=== PATIENT | female | born 1970 | race African-American/Black ===

== ENCOUNTER → 2021-07-22 | Emergency (ER) | payer MEDICAID ==
[~2021-07-22] VITALS: Ht 160 cm; Wt 72.9 kg
[~2021-07-22] MED LIST: ACET-2708 MT; ACETAMINOPHEN 325MG TABLET PO ONE; KETOROLAC 60MG/2ML VIAL IM ONE
[2021-07-22 20:15] VITALS: BP 130/84
== END ==
LOC: ER 19:40
DX: M79.18 Myalgia, other site (principal); M54.2 Cervicalgia; E11.9 Type 2 diabetes mellitus without complications; I10 Essential (primary) hypertension; F17.290 Nicotine dependence, other tobacco product, uncomplicated; Z88.5 Allergy status to narcotic agent
CPT/HCPCS: 96372; 99283; J1885